=== PATIENT | female | born 1990 | race African-American/Black ===

== ENCOUNTER 2017-10-02 13:21 | Emergency (ER) | payer BC, OTHER ==
[2017-10-02] MEDS ORDERED: Morphine 4 MG/ML VIAL ONE (14:21)
[2017-10-02 14:25] LABS: #Basophils 0.1 thou/uL (0.0-0.2); #Eosinphils 0.1 thou/uL (0.0-0.7); #Lymphocytes 1.4 thou/uL (1.20-3.40); #Monocytes 0.5 thou/uL (0.11-0.59); #Neutrophils 5.2 thou/uL (1.40-6.50); %Eosinophils 1.9 % (0.0-10.0); %Lymphocytes 19.4 % (21.0-51.0); %Monocytes 6.1 % (0.0-10.0); %Neutrophils 71.5 % (42.0-75.0); Hemoglobin 11.9 g/dL (12.0-16.0); Mean Corpuscular HGB CONC 33.9 g/dL (32.0-36.0); Mean Corpuscular Volume 85.6 fl (81.0-99.0); Mean Platelet Volume 7.1 fL (7.4-10.4); Platelet Count 283 thou/uL (130-400); RBC Distribution Width 11.8 % (11.5-14.5); Red Blood Cell (RBC) Count 4.11 mill/uL (4.20-5.40); White Blood Cell (WBC) Count 7.3 thou/uL (4.8-10.8)
[2017-10-02 14:48] LABS: ALT (SGPT) 35 U/L (8-55); AST (SGOT) 28 U/L (5-34); Albumin 3.6 g/dL (3.5-5.0); Alkaline Phosphatase 105 U/L (40-150); Anion Gap 10 mmol/L (10-20); BUN (Urea Nitrogen) 8 mg/dL (7.0-18.7); Bilirubin, Total 0.4 mg/dL (0.2-1.2); Calc. Creatinine Clearance 0 mL/min (70-130); Calcium 9.5 mg/dL (7.8-10.44); Carbon Dioxide 23 mmol/L (22-29); Chloride 103 mmol/L (98-107); Estimated GFR-MDRD Greater than 90; Globulin 3.8 g/dL (2.4-3.5); Glucose 79 mg/dL (70-105); Lipase 5 U/L (8-78); Potassium 3.7 mmol/L (3.5-5.1); Protein, Total 7.4 g/dL (6.0-8.3); Sodium 132 mmol/L (136-145)
--- NOTE | 2017-10-02 15:50 | ULT ---
OB ULTRASOUND: Date: 10/02/17 HISTORY: Severe right-sided pain, patient is 17 weeks . COMPARISON: None. TECHNIQUE: Transabdominal imaging of a gravid uterus is performed. FINDINGS: Uterus is identified. There are two separate gestational sacs. There is a gestational sac measuring 4.84 cm with a gestational age of 10 weeks/3 days. Within the ge stational sac appears to be nonviable pole with a crown-rump length of 1.59 cm, corresponding t o gestational age of 8 weeks/0 days. There are no heart tones. There is a second gestational sac with a single intrauterine gestation, breech presentation. There ar e heart tones with a rate of 147 beats/minute. There is an anterior placenta. Biometry: BPD: 3.95 cm, 18 weeks/0 days HC: 14.80 cm, 17 weeks/6 days AC: 11.89 cm, 17 weeks/4 days FL: 2.43 cm, 17 weeks/2 days Average age by sonography is 17 weeks/3 days. Estimated delivery date is 03/09/18. Estimated we ight is 199, +/- 29 gm. There are three separate fibroids noted in the uterus. There is a fibroid in the fundus with central necrosis measuring 5.4 x 2.7 x 4.7 cm. There is a fibroid in the left aspect of the uterus measuring 2.6 x 2.2 x 3.3 cm. There is a fibroid in the right aspect of the uterus which abuts the gestational sac containing a nonviable . This fibroid measures 3.8 x 5.3 x 4.0 cm. Neither ovary is appreciated. Limited imaging of the right kidney in sagittal plane does not demonstrate any gross hydronephrosis. IMPRESSION: 1. Twin intrauterine gestation. One of the twin gestations is nonviable. The second viable twin gest ation has heart tones and a gestational age of 17 weeks/3 days. 2. At leads three separate uterine fibroids are identified. The site of pain appears to involve the uterine fibroid that is adjacent to the nonviable gestational sac. This gestational sac appears to ca use mass effect upon the fibroid. Results of study discussed with Dr. Frazier on 10/02/17 at 1538 hours. CODE CR. POS: [facility]
== END 2017-10-02 15:49 | disposition home or self-care (01) ==
LOC: ERS 13:21
DX: O34.12 Maternal care for benign tumor of corpus uteri, second trimester (principal); Z3A.17 17 weeks gestation of pregnancy
CPT/HCPCS: 36415; 76815; 80053; 83690; 85025; 96374; J2270

== ENCOUNTER 2018-03-03 19:57 | Inpatient (IN) | payer BC ==
[2018-03-03] MEDS ORDERED: Misoprostol 100 MCG TAB VAG SCH (20:31)
[2018-03-03] MEDS ORDERED: Penicillin G Potassium 5 MILL.UNITS in Sodium Chloride 0.9% 100 ML IVPB SCH (20:31)
[2018-03-03] MEDS ORDERED: Ibuprofen 800 MG TAB PO PRN (20:31)
[2018-03-03] MEDS ORDERED: Promethazine HCl 25 MG/ML VIAL IM PRN (20:31)
[2018-03-03] MEDS ORDERED: Butorphanol Tartrate 1 MG/ML VIAL SLOW IVP PRN (20:31)
[2018-03-03] MEDS ORDERED: Zolpidem Tartrate 5 MG TAB PO PRN (20:31)
[2018-03-03] MEDS ORDERED: Ondansetron HCl/PF 4 MG/2 ML Vial IVP PRN (20:31)
[2018-03-03] MEDS ORDERED: NS / Oxytocin 40 units/1000ml 1,000 ML IV PRN (20:31)
[2018-03-03] MEDS ORDERED: NS w/ Oxytocin 10 units 500 ML IV SCH (20:31)
[2018-03-03] MEDS ORDERED: HYDROcodone/Acetaminophen 5/325 mg Tablet PO PRN ×2 (20:31)
[2018-03-03] MEDS ORDERED: Lactated Ringer's 1,000 ML IV SCH (20:31)
[2018-03-03] MEDS ORDERED: Lidocaine 1% (PF) 30 ML VIAL SC PRN (20:31)
[2018-03-03 20:43] VITALS: BMI 29.4
[2018-03-03 21:13] LABS: Hemoglobin 11.9 g/dL (12.0-16.0); Mean Corpuscular Hemoglobin 24.6 pg (27.0-31.0); Mean Corpuscular Volume 76.9 fL (78.0-98.0); Mean Platelet Volume 8.6 fL (7.4-10.4); Platelet Count 302 thou/uL (130-400); RBC Distribution Width 15.6 % (11.5-14.5); Red Blood Cell (RBC) Count 4.85 mill/uL (4.20-5.40); White Blood Cell (WBC) Count 6.4 thou/uL (4.8-10.8)
[2018-03-03] MEDS: Lactated Ringer's 1,000 ML IV SCH (21:31)
[2018-03-03] MEDS: Misoprostol 100 MCG TAB VAG SCH (21:42)
[2018-03-03 21:49] LABS: Syphilis Antibody Nonreactive (Nonreactive); Syphilis Antibody Index 0.07 S/CO (<1.00 Non-Reactive)
[2018-03-03 23:43] LABS: HBSAg Index 0.29 S/CO (0-0.99); Hep B Surf Ag Non-Reactive S/CO (NonReactive)
[2018-03-04] MEDS: Misoprostol 100 MCG TAB VAG SCH ×2 (01:16→05:35)
[2018-03-04] MEDS: Penicillin G 2.5 MILL.units 2.5 MILL.UNITS in Premix Bag 1 BAG IVPB SCH ×4 (01:22→14:22)
[2018-03-04] MEDS: Lactated Ringer's 1,000 ML IV SCH ×2 (02:33→06:44)
[2018-03-04] MEDS: Bupivacaine 0.5% 20 ML, fentaNYL Citrate/PF 400 MCG in Sodium Chloride 0.9% 72 ML EPIDURAL SCH ×2 (05:34→12:58)
[2018-03-04] MEDS ORDERED: Lactated Ringer's 500 ML IV PRN (05:49)
[2018-03-04] MEDS ORDERED: Ondansetron HCl/PF 4 MG/2 ML Vial IVP PRN ×2 (05:49→18:36)
[2018-03-04] MEDS ORDERED: Promethazine HCl 25 MG/ML VIAL IM PRN ×2 (05:49→18:36)
[2018-03-04] MEDS ORDERED: Eucerin (Mineral Oil/Petrolatum,White) 30 gm Jar TOP PRN (05:49)
[2018-03-04] MEDS ORDERED: Naloxone HCl 0.4 mg/ml Vial IVP PRN ×2 (05:49)
[2018-03-04] MEDS ORDERED: Acetaminophen 325 MG TAB PO PRN (05:49)
[2018-03-04] MEDS ORDERED: ePHEDrine/0.9% NaCl/PF SYRINGE 50 mg/10 ml SLOW IVP PRN (05:49)
[2018-03-04] MEDS ORDERED: diphenhydrAMINE 50 MG/ML VIAL IVP PRN (05:49)
[2018-03-04] MEDS ORDERED: Communication Order-Pharmacy FS SCH (06:00)
[2018-03-04] MEDS ORDERED: fentaNYL Citrate/PF 400 MCG, Bupivacaine 0.5% 20 ML in Sodium Chloride 0.9% 72 ML EPIDURAL SCH (06:00)
[2018-03-04] MEDS ORDERED: Methylergonovine 0.2 MG/ML VIAL ONE (15:38)
[2018-03-04 17:48] LABS: Actual Bicarbonate (HCO3a) 21.9 mEq/L (22-28)
[2018-03-04] MEDS ORDERED: Bisacodyl 10 MG SUPP PR PRN (18:36)
[2018-03-04] MEDS ORDERED: Benzocaine/Menthol 20-0.5% 60 ML CAN TOP PRN (18:36)
[2018-03-04] MEDS ORDERED: Lanolin Ointment 7 GM TUBE TOP PRN (18:36)
[2018-03-04] MEDS ORDERED: Zolpidem Tartrate 5 MG TAB PO PRN (18:36)
[2018-03-04] MEDS ORDERED: HYDROcodone/Acetaminophen 5/325 mg Tablet PO PRN ×2 (18:36)
[2018-03-04] MEDS ORDERED: diphenhydrAMINE 25 MG CAP PO PRN (18:36)
--- NOTE | 2018-03-04 18:49 | OP ---
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 PROCEDURE: Amor forceps asynclitism correction with a MiniVac vacuum delivery and third degree la ceration. SURGEON: Willi Villegas M.D. ANESTHESIA: Epidural as above. QUANTITATIVE BLOOD LOSS: 400 mL. COMPLICATIONS: None. OPERATIVE FINDINGS: 1. Vigorous male infant, OP rotated to OA at delivery, 8 and 9 Apgars, weight pending. Cord pH 7.2 0. 2. Third degree laceration repaired with 2-0 chromic. 3. Amor forceps used for asynclitism correction only, then vacuum delivery with no pop offs over 2 contractions for approximately 60-90 seconds in green zone throughout. DISPOSITION: The patient was in the delivery room. INDICATIONS: As noted in the operative findings for operative vaginal delivery were noted. The norm ent's bladder was well drained with the Arce removed in the last 30 minutes. Because of asynclitism , the decision was made to apply Amor forceps. Symptoms were applied and used to correct the asyn clitism, traction was applied over the course of one contraction and then infant was descended from + 3 to +4 station with the forceps. 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 Decisio n was made to proceed with vacuum delivery because it was obvious there was plenty of room for delive ry even though it was OP presentation anticipated to rotation. Forceps were removed and the vacuum w as applied over 2 contractions, gentle traction was applied. The infant delivered down to +4 to +5 s tation auto rotated 180 degrees, delivered OA. No shoulder dystocia was encountered. No nuchal cord was encountered. was delivered. Cord clamped cut and handed off to nursery nurse in [facility]. Usual cord gas was obtained and usual cord blood sample. Placenta delivered spontaneously. The patient was noted to have a midline third degree laceration which was repaired in the usual keshia r. A multilayer closure using 2-0 chromic. Rectal exam was performed afterwards, which confirmed no evidence of an occult fourth degree laceration. Quantitative blood loss was 400 mL. Patient tolera manuel the procedure well and will be entered into routine recovery.
[2018-03-04] MEDS: NS / Oxytocin 40 units/1000ml 1,000 ML IV SCH (19:14)
[2018-03-04] MEDS ORDERED: Ibuprofen 800 MG TAB PO SCH (22:00)
[2018-03-04] MEDS: Docusate Calcium (SURFAK) 240 MG CAP PO SCH ×2 (23:18→23:21)
[2018-03-05] MEDS: NS / Oxytocin 40 units/1000ml 1,000 ML IV SCH (00:37)
[2018-03-05] MEDS: Misoprostol 100 MCG TAB VAG SCH (03:05)
[2018-03-05] MEDS: Penicillin G 2.5 MILL.units 2.5 MILL.UNITS in Premix Bag 1 BAG IVPB SCH (03:05)
[2018-03-05] MEDS ORDERED: Bupivacaine/Epinephrine 0.25% 30 ML VIAL ONE (04:34)
[2018-03-05 05:53] LABS: Hemoglobin 9.2 g/dL (12.0-16.0); Mean Corpuscular HGB CONC 32.6 g/dL (32.0-36.0); Mean Corpuscular Hemoglobin 25.8 pg (27.0-31.0); Mean Platelet Volume 8.7 fL (7.4-10.4); Platelet Count 200 thou/uL (130-400); RBC Distribution Width 15.5 % (11.5-14.5); Red Blood Cell (RBC) Count 3.59 mill/uL (4.20-5.40); White Blood Cell (WBC) Count 10.6 thou/uL (4.8-10.8)
[2018-03-05] MEDS ORDERED: Ibuprofen 800 MG TAB PO SCH (06:00)
[2018-03-05] MEDS: Ibuprofen 100 MG/5 ML UDCUP PO SCH ×4 (06:08→23:54)
[2018-03-05] MEDS: Prenatal Vitamin 1 TAB PO SCH (08:56)
[2018-03-05] MEDS: Ferrous Sulfate 325 MG TAB PO SCH ×2 (08:56→17:07)
[2018-03-05] MEDS ORDERED: Adacel (T-DAP) 0.5 ML VIAL IM ONE (09:00)
[2018-03-05] MEDS: Docusate Sodium 100 MG/10 ML UDCUP PO SCH ×2 (12:04→20:18)
[2018-03-05] MEDS: Milk Of Magnesia 30 ML UDCUP PO PRN (20:18)
[2018-03-06] MEDS: Ibuprofen 100 MG/5 ML UDCUP PO SCH ×2 (05:36→14:13)
[2018-03-06 08:16] VITALS: BP 116/69; TEMP 97.9
--- NOTE | 2018-03-06 08:31 | PDOC.PP ---
Post Progress Note Post Day #: 2 PO intake tolerated: yes Flatus: yes Ambulation: yes Vital Signs (12 hours) Temp Pulse Resp BP Pulse Ox 03/06/18 08:15 97.9 F 79 20 116/69 98 Weight Weight 161 lb - Physical Examination Abdominal: + bowel sounds, lochia, no distention, appropriately TTP Extremities: negative homans (B) Result Diagrams: 03/05/18 05:20 Additional Labs: Post Labs Blood Type O POSITIVE 03/03/18 20:58 Hep Bs Antigen Non-Reactive S/CO (NonReactive) 03/03/18 20:58 - Assessment/Plan post day 2-doing well. d/c home this pm if doing well. f/u 6 weeks.
[2018-03-06] MEDS: Docusate Sodium 100 MG/10 ML UDCUP PO SCH (08:58)
[2018-03-06] MEDS: Prenatal Vitamin 1 TAB PO SCH (09:01)
[2018-03-06] MEDS: Ferrous Sulfate 325 MG TAB PO SCH (09:01)
[2018-03-06] MEDS: Milk Of Magnesia 30 ML UDCUP PO PRN (14:13)
== END 2018-03-06 14:30 | disposition home or self-care (01) | DRG 768 ==
LOC: L&D 19:57 → 3SW 03-04 22:11
PROVIDERS: ADMIT Obstetrics & Gynecology; ATTEND Obstetrics & Gynecology
PROC: 10D07Z6 Extraction of Products of Conception, Vacuum, Via Natural or Artificial Opening (ICD-10-PCS; principal; 2018-03-04)
PROC: 0DQR0ZZ Repair Anal Sphincter, Open Approach (ICD-10-PCS; 2018-03-04)
PROC: 4A0HXCZ Measurement of Products of Conception, Cardiac Rate, External Approach (ICD-10-PCS; 2018-03-04)
DX: O65.0 Obstructed labor due to deformed pelvis (principal); Z37.0 Single live birth; O70.20 Third degree perineal laceration during delivery, unspecified; O76 Abnormality in fetal heart rate and rhythm complicating labor and delivery; Z3A.39 39 weeks gestation of pregnancy
CPT/HCPCS: 36415; 51702; 82805; 85027; 86780; 86850; 86900; 86901; 87340; J0595; J2210; J2405; J2540; J3010; J3490; J7050

== ENCOUNTER 2020-10-22 09:26 | Day surgery (SDC) | payer BC ==
[2020-10-22 10:04] LABS: #Eosinphils 0.1 thou/uL (0.0-0.7); #Lymphocytes 1.7 thou/uL (1.20-3.40); #Monocytes 0.4 thou/uL (0.11-0.59); #Neutrophils 4.6 thou/uL (1.40-6.50); %Basophils 0.4 % (0.0-1.0); %Eosinophils 1.4 % (0.0-10.0); %Lymphocytes 24.6 % (21.0-51.0); %Monocytes 6.2 % (0.0-10.0); %Neutrophils 67.5 % (42.0-75.0); Hemoglobin 14.3 g/dL (12.0-16.0); Mean Corpuscular HGB CONC 32.3 g/dL (32.0-36.0); Mean Corpuscular Hemoglobin 28.8 pg (27.0-31.0); Mean Corpuscular Volume 89.3 fL (78.0-98.0); Platelet Count 272 thou/uL (130-400); RBC Distribution Width 11.8 % (11.5-14.5); Red Blood Cell (RBC) Count 4.95 mill/uL (4.20-5.40); White Blood Cell (WBC) Count 6.8 thou/uL (4.8-10.8)
[2020-10-22] MEDS ORDERED: Ondansetron PF 4 MG/2 ML Vial ONE ×2 (10:20→17:53)
[2020-10-22] MEDS ORDERED: Morphine 4 MG/ML VIAL ONE (10:20)
[2020-10-22 10:22] LABS: ALT (SGPT) 7 U/L (8-55); AST (SGOT) 18 U/L (5-34); Albumin 4.4 g/dL (3.5-5.0); Alkaline Phosphatase 59 U/L (40-110); Anion Gap 13 mmol/L (10-20); BUN (Urea Nitrogen) 14 mg/dL (7.0-18.7); Bilirubin, Total 0.4 mg/dL (0.2-1.2); Calc. Creatinine Clearance 0 mL/min (70-130); Calcium 9.5 mg/dL (7.8-10.44); Carbon Dioxide 22 mmol/L (22-29); Chloride 106 mmol/L (98-107); Globulin 3.1 g/dL (2.4-3.5); Glucose 104 mg/dL (70-105); Potassium 3.7 mmol/L (3.5-5.1); Protein, Total 7.5 g/dL (6.0-8.3); Sodium 137 mmol/L (136-145)
[2020-10-22] MEDS ORDERED: Iopamidol 370 76% 50 ML VIAL FS ONE (10:59)
[2020-10-22] MEDS ORDERED: Iopamidol-370 76% 500 ML 1 ML ONE (10:59)
[2020-10-22 11:50] LABS: Bacteria/HPF 4+ HPF (None Seen); Bilirubin Negative (Negative); Blood, Urine Trace (Negative); Clarity Clear (Clear); Glucose, Urine (Dipstick) Normal (Negative); Ketone, Urine 40 mg/dL (Negative); Leukocyte 25 Leu/uL (Negative); Nitrite 2+ (Negative); Protein, Urine (Dipstick) 20 mg/dL (Neg-Trace); Specific Gravity, Urine 1.036 (1.002-1.036); Squamous Epithelial 0-3 HPF (0-3)
[2020-10-22 11:53] LABS: Pregnancy Test - Urine (BHCG) Negative (Negative); Pregu Control Background? CLEAR/WHITE (CLR/WHITE); Pregu Control Bar Appear? YES (CONTROL BAR); Specific Gravity 1.036 (1.002-1.036)
[2020-10-22] MEDS ORDERED: Piperacillin/Tazobactam 3.375 GM VIAL ONE (13:54)
[2020-10-22 14:59] LABS: SARS-CoV-2 NAA Rapid Test Not Detected (NotDetected)
[2020-10-22] MEDS ORDERED: Fentanyl 100 MCG/2 ML VIAL ONE (16:08)
[2020-10-22] MEDS ORDERED: Promethazine HCl 25 MG/ML VIAL SLOW IVP PRN (16:18)
[2020-10-22] MEDS ORDERED: Ondansetron HCl/PF 4 MG/2 ML Vial IVP PRN (16:18)
[2020-10-22] MEDS ORDERED: Promethazine HCl 25 MG/ML VIAL IM PRN (16:18)
[2020-10-22] MEDS ORDERED: Lidocaine 1% w/Epinephrine 1:100K 20 ML VIAL ONE (17:22)
[2020-10-22] MEDS ORDERED: Bupivacaine 0.25% HCL 30 ML VIAL ONE (17:22)
[2020-10-22] MEDS ORDERED: Dexamethasone 20 MG/5 ML VIAL ONE (17:53)
[2020-10-22] MEDS ORDERED: PROPOFOL 200 MG/20 ML VIAL ONE (17:53)
[2020-10-22] MEDS ORDERED: Succinylcholine 200 MG/10 ml SYRINGE FS ONE (17:53)
[2020-10-22] MEDS ORDERED: Glycopyrrolate 0.2 MG/ML 5 ML SYRINGE ONE (17:53)
[2020-10-22] MEDS ORDERED: Lidocaine 1% PF 5 ML VIAL ONE (17:53)
[2020-10-22] MEDS ORDERED: Ketorolac Tromethamine 30 MG/ML VIAL ONE (17:53)
[2020-10-22] MEDS ORDERED: Rocuronium Bromide 10 MG/ML (10ML VIAL) ONE (17:53)
[2020-10-22] MEDS ORDERED: Ondansetron ODT 4 MG TAB ONE (19:55)
== END 2020-10-22 21:05 | disposition home or self-care (01) ==
LOC: ERS 09:26 → SDC/OP 14:56
PROVIDERS: ATTEND Surgery
PROC: 0DTJ4ZZ Resection of Appendix, Percutaneous Endoscopic Approach (ICD-10-PCS; principal; 2020-10-22)
DX: K35.80 Unspecified acute appendicitis (principal); D25.9 Leiomyoma of uterus, unspecified; N83.292 Other ovarian cyst, left side; Z20.822 Contact with and (suspected) exposure to COVID-19
CPT/HCPCS: 0240U; 36415; 74177; 80053; 81003; 81015; 81025; 83690; 85025; 88304; 93005; 94760; 96365; 96375; J1100; J1885; J2270; J2405; J2543; J2704; J3010; Q0162; Q9967; S0020